=== PATIENT | female | born 1975 | race Caucasian/White ===

== ENCOUNTER 2020-11-26 09:28 | Day surgery (SDC) | payer SELFPAY ==
--- NOTE | 2020-11-25 09:05 | HP.PCM_ITS ---
History and Physical Date of Admission: 11/26/20 Pre-Op History and Physical ? HPI: The patient is a 45 year old female presenting for discussion regarding management options for heavy menses. Patient is currently on Coumadin has very heavy flow for 5 days. Patient would like management options. After discussion regarding Mirena versus endometrial ablation patient would like to proceed with Vaishnavi endometrial ablation. Endometrial biopsy being performed today. ? Pre-operative visit. She is scheduled for hysteroscopy, Vaishnavi endometrial ablation, for heavy menses, aub-date to be determined. Procedure discussed along with risks, benefits and complications. Other alternatives discussed for management. Consent form signed? Yes. ? ? PAST MEDICAL HISTORY PAST MEDICAL HISTORY Diagnosis Date ? Anxiety ? ? Kidney calculi ? ? Kidney stones 06/27/2018 ? Morbid obesity (HCC) ? ? MTHFR deficiency complicating , unspecified trimester (HCC) ? ? Psychiatric disorder ? ? Pulmonary embolism (HCC) ? ? ? PAST SURGICAL HISTORY PAST SURGICAL HISTORY Procedure Laterality Date ? APPENDECTOMY ? 07/2017 ? SECTION HX ? ? ? 2004, 2011 ? CHOLECYSTECTOMY HX ? 06/2017 ? HAND SURGERY HX Bilateral ? ? carpal tunnel ? PAST SURGICAL HISTORY OF Right 05/2017 ? KIDNEY STONES REMOVED ? PAST SURGICAL HISTORY OF ? 2011 ? tubal ligation ? PAST SURGICAL HISTORY OF ? ? ? lymph node excision neck ? SHOULDER SURGERY HX Right ? ? TONSILLECTOMY HX ? CURRENT MEDICATIONS Current Outpatient Medications Medication Sig Dispense Refill ? buPROPion XL (WELLBUTRIN XL) 150 mg 24 hr tablet Take 1 tablet by mouth once daily. 90 tablet 0 ? naltrexone (TREXAN) 50 mg tablet Take 1 tablet by mouth once daily. start with 1/4 tablet initially for 1-2 weeks. If there is no effect then increase the dose to 1/2 for another 2 weeks. This can be increased again to 3/4 and then 1 full tablet 30 tablet 2 ? warfarin (COUMADIN) 5 mg tablet Take 10mg on Monday and Monday and 7.5mg on all other days of the week 60 tablet 2 ? albuterol HFA (PROAIR HFA) 90 mcg/actuation inhaler Inhale 2 Puffs as instructed every 6 hours as needed. 1 Each 5 ? cholecalciferol, Vitamin D3, (VITAMIN D3) 1,250 mcg (50,000 unit) cap capsule Take 1 capsule by mouth one time a week. 12 capsule 3 ? sertraline (ZOLOFT) 100 mg tablet Take 1 tablet by mouth once daily. 30 tablet 11 ? busPIRone (BUSPAR) 5 mg tablet Take 1 tablet by mouth as needed. 30 tablet 5 ? Current Facility-Administered Medications Medication Dose Route Frequency Provider Last Rate Last Admin ? perflutren lipid microspheres 1.3 mL in NaCl (PF) 0.9% 10 mL injection (DEFINITY) INTRAVENOUS DIRECTED PRN Luis Mishra MD ? sodium chloride 0.9 % (flush) 10 mL (BD POSIFLUSH) 10 mL INTRAVENOUS DIRECTED PRN Luis Mishra MD ? ? ALLERGIES: Latex ? PERSONAL HISTORY: SOCIAL HISTORY Social History ? Tobacco Use ? Smoking status: Never Smoker ? Smokeless tobacco: Never Used Vaping Use ? Vaping Use: Never used Substance Use Topics ? Alcohol use: No ? ? Comment: rarely ? Drug use: No ? FAMILY HISTORY: FAMILY HISTORY FAMILY HISTORY Problem Relation Age of Onset ? Hypertension Father ? ? Breast Cancer Maternal Aunt ? ? Colon Cancer Maternal Uncle ? ? ? REVIEW OF SYMPTOMS: negative except as noted above PHYSICAL EXAMINATION: ? VITALS: Blood pressure 128/80, weight 286 lb (129.7 kg), last menstrual period 09/19/2020. ? GENERAL: The patient is well nourished, well hydrated in no acute distress. , The patient is oriented to time, place, and person. NECK: full range of motion GENITALIA: Normal external genitalia, Urethral meatus normal, Bladder nontender, normal vagina and normal vaginal tone, normal cervix and perineum WNL ? IMPRESSION: AUB, Heavy menses on coumadin ? PLAN: Hysteroscopy, Vaishnavi ablation, Possible insertion of Mirena IUD ? Pt has been counseled on risks/benefits and alternatives of surgery including but not limited to anesthesia, bleeding, infection, uterine perforation with moreno bsequent injury to pelvic structures including bowel, bladder, ureters and vessels. Pt wishes to proceed with surgery at this time. ? Pre and postoperative instructions reviewed with the patient. ? Preoperative clearance with PCP was reviewed. Patient is seeing her primary care physician next week and will ask that she perform this at that time. ? Endometrial biopsy pending today ? Covid testing will need to be performed. Patient is not vaccinated at this time. ? ? I have reviewed and updated past medical and surgical history, medications and allergies Norma Daniel, MD ?4:38 PM
[2020-11-26] VITALS (11 sets, daily range): BP systolic 131–163; BP diastolic 80–100; PULSE 69–106; RESP 16; TEMP 36.1–37; O2SAT 93–100; BMI 43.7
[2020-11-26 10:01] LABS: Internal QC Validated? YES +Cl - CLEAR BKGD; Pregnancy, Urine Negative Negative
--- NOTE | 2020-11-26 11:08 | PCM.OPRPT ---
Problems Associated Problem List Diagnoses (1) Abnormal uterine bleeding (AUB): Report of Operation Date of Procedure: 11/26/20 Pre-Operative Diagnosis: aub Post-Operative Diagnosis: same Surgery/Procedure Performed:: hysteroscopy, vaishnavi endometrial ablation Description of Surgical Findings:: Normal uterine cavity- both tubal ostial visualized. Surgeon: Norma Caraballo generating plant superintendent: ms Carrera Type of Anesthesia: MAC Specimen's removed: none Drains: none Estimated Blood Loss (mL): <5cc Fluids Replaced: 300 Description of Procedure: After informed consent was obtained patient taken to the operating room she is placed in supine position she is given anesthesia. she was prepped draped normal sterile fashion. Bladder was drained prior to the start of the procedure. At this time the weighted speculum was placed the posterior fornix of the vagina then a single-tooth tenaculum was used to grasp the anterior lip of the cervix. At this time the uterus was sounded to approximately 8 cm the endocervical canal sounded to 4cm. Next cervix was dilated in incremental fashion. Once adequate dilatation was achieved the hysteroscope was inserted using normal saline as distention medium. On hysteroscopy no abnormalities appreciated. Both tubal ostia were visualized. At this time the Vaishnavi device was opened. The Vaishnavi was set at 4cm. The device was activated. Prior to activation the field test was performed and cavity was intact. The device was then fired and activated for 120 seconds. Once the 120 seconds was completed the device was removed intact and the tenaculum was removed. Good hemostasis was appreciated. Weighted speculum was removed. Vaginal sweep was performed is negative. There were no complications. Anticipated normal postoperative course for this patient. Instrument and lap count were correct ?2. vaginal sweep negative. Grafts/Implants Used: none Procedure Start Time: 11:00 Procedure Stop Time: 11:07 Complications none Admit VTE Documentation VTE Present on Admission: Yes VTE Mechan Device Prophylaxis: SCD's VTE Pharm Prophylaxis ordered?: No Reason prophylaxis not ordered:: Medical Contraindication (patient already on- did not stop prior to procedure)
--- NOTE | 2020-11-26 11:11 | EX.PCM.DISCH ---
Discharge Instructions Procedure D&C Diet Discharge Diet: No restrictions Activity May resume sexual activity in: 1 week Dressing / Incision Call your doctor if you observe: Fever of 101 or Higher, Inability to urinate, Using more than 1 pad per hour and Uncontrolled pain Follow Up Care Please Follow Up With: Norma Caraballo MD When: 1-2 weeks post OP if you need an appointment please call [phone] Test Results: Test results from this visit will be discussed in further detail at your follow-up appointment, if applicable. Discharge Plan Admission Attending Provider: Norma Caraballo Discharge Orders/Prescriptions Prescriptions: No Action naltrexone 50 mg Tablet 50 mg PO DAILY RF: 0 sertraline 100 mg Tablet 100 mg PO DAILY RF: 0 albuterol 90 mcg/actuation Aerosol 90 mcg INHALATION PRN PRN (Reason: ASTHMA) RF: 0 bupropion HCl 300 mg Tablet Extended Release 24 Hr 300 mg PO DAILY RF: 0 Eliquis 5 mg Tablet 5 mg PO DAILY RF: 0
[2020-11-26] MEDS: HYDROcodone Bitartrate/Apap 5/325 Tablet PO (12:46)
== END 2020-11-26 13:39 | disposition home or self-care (01) ==
LOC: SDC 09:32 → AC 09:33
PROVIDERS: Anesthesiology; Referring Provider Obstetrics & Gynecology; Visit Provider Obstetrics & Gynecology
PROC: 0U5B8ZZ Destruction of Endometrium, Via Natural or Artificial Opening Endoscopic (ICD-10-PCS; CPT 58558; principal; 2020-11-26 10:45)
DX: N93.9 Abnormal uterine and vaginal bleeding, unspecified (principal); F41.9 Anxiety disorder, unspecified; Z79.01 Long term (current) use of anticoagulants; Z80.3 Family history of malignant neoplasm of breast; Z82.49 Family history of ischemic heart disease and other diseases of the circulatory system; Z86.711 Personal history of pulmonary embolism; Z90.49 Acquired absence of other specified parts of digestive tract; Z79.899 Other long term (current) drug therapy
CPT/HCPCS: 00952; 58563; 81025; 87426; C9803; J7120; J2405

== ENCOUNTER 2023-11-02 05:29 | Day surgery (SDC) | payer SELFPAY ==
--- NOTE | 2023-10-31 11:27 | HP.PCM_ITS ---
History and Physical Date of Admission: 11/02/23 HPI: The patient is a 48 year old female presenting for pre-operative visit. She is scheduled for TLH with cystoscopy, for menorrhagia, failed endometrial ablation on 11/02/23. Procedure discussed along with risks, benefits and complications. Other alternatives discussed for management. Consent form signed? Yes. PAST MEDICAL HISTORY PAST MEDICAL HISTORY No date: Anxiety No date: Kidney calculi 06/27/2018: Kidney stones No date: Morbid obesity (HCC) No date: MTHFR deficiency complicating , unspecified trimester (HCC) No date: PONV (postoperative nausea and vomiting) No date: Psychiatric disorder No date: Pulmonary embolism (HCC) PAST SURGICAL HISTORY PAST SURGICAL HISTORY 07/2017: APPENDECTOMY No date: SECTION HX Comment: 2004, 06/2017: CHOLECYSTECTOMY HX 06/09/2023: [facility] Comment: Left extracorporeal shock wave lithotripsy No date: HAND SURGERY HX; Bilateral Comment: carpal tunnel 04/02/2021: HIP SURGERY HX; Right Comment: total hip arthroplasty with rKish Hinkle([facility]) 05/2017: PAST SURGICAL HISTORY OF; Right Comment: KIDNEY STONES REMOVED 2011: PAST SURGICAL HISTORY OF Comment: tubal ligation No date: PAST SURGICAL HISTORY OF Comment: lymph node excision neck 11/26/2020: S DEV VAISHNAVI ENDOMETRIAL ABLATION Comment: Hysterscopy Vaishnavi Endometrial Ablation at [facility]-Dr. Daniel No date: SHOULDER SURGERY HX; Right No date: TONSILLECTOMY HX CURRENT MEDICATIONS Current Outpatient Medications Medication Sig Dispense Refill ? semaglutide (OZEMPIC) 0.25 mg or 0.5 mg(2 mg/1.5 mL) pen Inject 0.25 mg subcutaneously one time a week. Takes on Wednesdays ? apixaban (ELIQUIS) 5 mg tab(s) Take by mouth twice daily. No current facility-administered medications for this visit. ALLERGIES: Ciprofloxacin and Latex PERSONAL HISTORY: SOCIAL HISTORY Social History Tobacco Use ? Smoking status: Never ? Smokeless tobacco: Never Vaping Use ? Vaping Use: Never used Substance Use Topics ? Alcohol use: No Comment: rarely ? Drug use: No FAMILY HISTORY: FAMILY HISTORY FAMILY HISTORY Problem Relation Age of Onset ? Hypertension Father ? Breast Cancer Maternal Aunt ? Colon Cancer Maternal Uncle REVIEW OF SYMPTOMS: GENERAL: denies fevers or chills ENDOCRINOLOGY: has not been on steroids Cardiology : denies palpitations or chest pain Respiratory: denies SOB or cough Hematology: denies history of prolonged bleeding or easy bruising or VTE Allergy: Denies history of personal or family history of allergy to anesthesia PHYSICAL EXAMINATION: VITALS: Last menstrual period 09/30/2023. GENERAL: The patient is well nourished, well hydrated in no acute distress. , The patient is oriented to time, place, and person. NECK: Supple. No lynphadenopathy, normal thyroid, no thyromegaly. LUNGS: Clear to auscultation bilaterally. no wheezes, rhonchi or rales HEART: Regular rate and rhythm, Normal heart sounds, and No murmurs or gallops PELVIC US : Abnormal uterine bleeding Impression The contour of the uterus and the endometrial cavity were evaluated with 3-D imaging. Findings are suggestive of arcuate uterus. The uterus is axial and measures 86 mm x 40 mm x 56 mm. The myometrium is heterogeneous but no obvious fibroids are observed. This finding is suggestive of adenomyosis. The endometrial thickness is 4.8 mm. There is a left lateral anterior wall echogenic lesion that is suspicious for a polyp that measures 10 mm x 7 mm x 7 mm. The right ovary measures 27 mm x 14 mm x 18 mm. The left ovary measures 22 mm x 19 mm x 16 mm. There is no free fluid visualized. Technique: Three dimensional imaging was created on a dedicated stand-alone 3D workstation with images created and archived, and supervised and reviewed by the interpreting physician utilizing images from a US Scan performed on 10/10/23. Recommendations Consider SIS for further evaluation of endometrial cavity if clinically indicated. Ultrasound findings suggestive for adenomyosis. Clinical correlation is recommended. History Medical History Surgery: Tubal ligation Surgery: uterine ablation Menstrual History LMP on 09/30/2023. Contraception: none Method Transabdominal, transvaginal, 3D ultrasound examination, Color Doppler examination. View: Adequate visualization Uterus Uterus: Visualized Uterus position: axial Description of uterine malformations: arcuate Myometrium: heterogeneous Endometrium: possible polyp in the left portion Cervix details: cystic lesions identified suggesting superficial Nabothian cysts Uterus length 86 mm Uterus width 56 mm Uterus height 40 mm Uterus Vol 99.7 cm? Endometrial thickness single layer 4.5 mm Endom. th. single layer 6.5 mm Side: right Side: left Endometrial thickness, total 4.8 mm Fibroids: No fibroids identified Polyps: Polyps identified Uterine polyp D1 10 mm Uterine polyp D2 7 mm Uterine polyp D3 7 mm Uterine polyp mean 8.0 mm Doppler: vascular flow not visualized Uterine polyp findings: Left lateral anterior wall Right Ovary Rt ovary: Visualized Rt ovary morphology: premenopausal normal follicular Rt ovary D1 27 mm Rt ovary D2 14 mm Rt ovary D3 18 mm Rt ovary Vol 3.6 cm? Rt ovarian cyst(s): No cysts identified Left Ovary Lt ovary: Visualized Lt ovary morphology: premenopausal normal follicular Lt ovary D1 22 mm Lt ovary D2 19 mm Lt ovary D3 16 mm Lt ovary Vol 3.4 cm? Lt ovarian cyst(s): No cysts identified Cul de Sac Visualized. no free fluid visualized IMPRESSION: menorrhagia, h/o PE on lifelong anticoagulation, failed endometrial ablation, adenomyosis, arcuate uterus PLAN: The risks/benefits/alternatives and personal involved for the planned TLH with cystoscopy were reviewed with the patient. Her questions were answered to her satisfaction and she desires to proceed. Consent was signed. I reviewed with her postop instructions and expectations. Will bridge with lovenox for 3 days preop and start Eliquis POD#1 if no evidence of postop bleeding I have reviewed and updated past medical and surgical history, medications and allergies Assessment & Plan Assessment/Plan (1) Abnormal uterine bleeding (AUB): (2) Adenomyosis: (3) Arcuate uterus: (4) Endometrial polyp: (5) Anticoagulant long-term use:
[2023-11-02] VITALS (10 sets, daily range): BP systolic 108–158; BP diastolic 59–93; PULSE 72–101; RESP 16; TEMP 36.2–37.2; O2SAT 97–100; BMI 36.8
[2023-11-02 05:58] LABS: Internal QC Validated? YES +Cl - CLEAR BKGD; Pregnancy, Urine Negative Negative; Record Kit Lot#,Urine Preg 772476
--- NOTE | 2023-11-02 06:52 | PCM.PRE.AN2 ---
ASA Classification* ASA Classification ASA Classification: 2 Assessment & Plan Anesthesia* Anesthesia Assessment Anesthesia Assessment: Discussed sedation and/or anesthesia options, risks, benefits, and alternatives with patient/parents/legal guardian/POA. Questions invited. The patient/parents/legal guardian/POA seems to understand and agrees to proceed with anesthesia plan. Reviewed the physical assessment, medical history, allergy history and patient home medications list prior to surgery/procedure/anesthetic and documented any changes. Performed airway and anesthesia risk assessments. Anesthesia Type Anesthesia Type: General (see written pre-anesthesia record for full assessment) Anesthesia Focused Assessment* Temperature: 97.6 F Pulse Rate: 89 Blood Pressure: 135/84 Respiratory Rate: 16 Pulse Ox: 99 Airway Assessment Mouth opens: >3 cm Mallampati Score: II Focused Labs Anesthesia Preop lab: CBC CHEMISTRY Magnesium Pending 11/02/23 06:20 COAG Urine Test Negative Negative 11/02/23 05:50 Pre-Assessment Diagnosis/Proposed Procedure Planned Operative Procedure(s): HYSTERECTOMY TLH CYSTO Anesthesia History Anesthesia History - manager consumer: Anesthesia History - manager consumer Hx Hospitalization No 10/24/23 13:45 Any Problems With Anesthesia Yes: N,V 10/24/23 13:45 Cholinesterase deficiency No 10/24/23 13:45 You/Your Family Experience No 10/24/23 13:45 fever (hyperthermia) with Relationship Recent Exposure to Contagious No 11/02/23 06:07 Disease Does patient have nerve No 10/24/23 13:45 stimulator Patient instructed to have device shut off --Does patient have Pacemaker No 11/02/23 06:07 or ICD? When Was Last Pacemaker Check QUESTION #4 FULL TEXT: You/Your Family Experience fever (hyperthermia) with Anesthesia Last Oral Intake Last Oral intake: Last Oral Intake NPO since 03:30 11/02/23 06:07 Meds taken in AM with sips of Yes 11/02/23 06:07 water? Meds patient instructed to take am of surgery PONV PONV - manager consumer: PONV - manager consumer Female Yes 10/24/23 13:45 HX of Motion Sickness No 10/24/23 13:45 HX of N/V After Surgery Yes 10/24/23 13:45 Non-Smoker Yes 10/24/23 13:45 Duration of Surgery greater Yes 10/24/23 13:45 than 60 minutes Number of Risk Factors 4 10/24/23 13:45 PONV Score Severe Risk 10/24/23 13:45 Height & Weight Height & Weight: Anesthesia: Height & Weight Height 5 ft 7 in 11/02/23 06:07 Weight: 106.5 kg 11/02/23 06:07 Body Mass Index (BMI) 36.8 11/02/23 06:07 Respiratory Assessment Respiratory Assessment - manager consumer: Respiratory Tract Infection Hx - manager consumer Hx Respiratory Tract Infection No 10/24/23 13:45 STOP Sleep Apnea STOP Sleep Apnea - manager consumer: STOP Sleep Apnea - manager consumer Hx Hypertension Yes: ONLY DURING 10/24/23 13:45 Hx Sleep Apnea No 10/24/23 13:45 CPAP BIPAP Do you snore loudly (louder No 10/24/23 13:45 than talking or can be heard Do you often feel tired/ No 10/24/23 13:45 fatigued/ sleepy during daytime? Has anyone observed you stop No 10/24/23 13:45 breathing during sleep? STOP Results Negative 10/24/23 13:45 QUESTION #5 FULL TEXT : Do you snore loudly (louder than talking or can be heard through closed doors)? Tobacco Use History Tobacco Use History - manager consumer: Tobacco Use History - manager consumer Tobacco Use Smoking Status Never smoker 10/24/23 13:45 Hx Tobacco Use No 10/24/23 13:45 Years Smoking Packs Smoked per Day Smoking Cessation Date was within the last 15 years Hx Smoking Cessation Date Hx Smoking Cessation Counseling Hematologic Medial History Hematologic Hx - manager consumer: Hematologic Medical Hx - director regulatory compliance Hx of Blood Transfusion No 10/24/23 13:45 Hx of Transfusion in last 3 No 10/24/23 13:45 Months Date of Last Transfusion (if within last 3 months) Ever experience any problems No 10/24/23 13:45 with transfusion(s)? Specify any problems Hx of Preganancy in last 3 No 10/24/23 13:45 Months Nurse Filling Out Transfusion DSCHRIBER 10/24/23 13:45 & Questions: Date: 10/24/23 10/24/23 13:45 Time: 13:47 10/24/23 13:45 Patient unable to answer at this time (ie. confused, unrespo /Reproduction History /Reproductive History - manager consumer: /Reproductive Hx- manager consumer Hx Now No 10/24/23 13:45 Gestational Age (in weeks): EDC: Hx Hx Para Hx Section SAB No 10/24/23 13:45 Active Medications Active Medications: Current Medications Generic Name Dose Route Start Last Admin Trade Name Freq PRN Reason Stop Dose Admin Acetaminophen 1,000 mg 11/02/23 07:30 11/02/23 06:35 Acetaminophen 500 Mg Tablet PO 11/02/23 07:31 1,000 mg PREOP ONE Administration Celecoxib 400 mg 11/02/23 07:30 11/02/23 06:34 Celecoxib 200 Mg Capsule PO 11/02/23 07:31 400 mg X1 ONE Administration Dexamethasone Sodium Phosphate 8 mg 11/02/23 07:30 Dexamethasone 4 Mg/Ml Vial IV 11/02/23 07:31 X1 ONE Gabapentin 600 mg 11/02/23 07:30 11/02/23 06:34 Gabapentin 600 Mg Tablet PO 11/02/23 07:31 600 mg PREOP ONE Administration Lactated Ringer's 1,000 mls @ 40 mls/hr 11/02/23 07:30 IV .Q25H GISSEL Cefazolin Sodium 2 gm/ Sodium 110 mls @ 150 mls/hr 11/02/23 07:30 Chloride IV 11/02/23 08:13 PREOP ONE Lactated Ringer's 1,000 mls @ 40 mls/hr 11/02/23 08:30 IV .Q25H GISSEL Lactated Ringer's 1,000 mls @ 15 mls/hr 11/02/23 06:00 11/02/23 06:34 IV 15 mls/hr .Q48H GISSEL Administration Insulin Human Lispro 0 unit 11/02/23 07:30 Insulin Lispro 100 Unit/Ml Insuln.Pen SC 11/02/23 13:30 Q4H PRN PRN BG >/= 180, SEE PROTOCOL Protocol Ondansetron HCl 4 mg 11/02/23 08:00 Ondansetron 4 Mg/2 Ml Vial IV 11/02/23 08:01 X1 ONE Phenazopyridine HCl 190 mg 11/02/23 07:30 11/02/23 06:34 Phenazopyridine 95 Mg Tablet PO 11/02/23 07:31 190 mg X1 ONE Administration Scopolamine HBr 1 patch 11/02/23 07:30 11/02/23 06:35 Scopolamine 1mg/72hr Patch TD 11/02/23 07:31 1 patch X1 ONE Administration PFSH Medical History Alcohol use Arthritis Low iron Syncope History of pain when walking Wears glasses Depression Blood disorder Pulmonary embolism DVT (deep venous thrombosis) Migraine headache Non-smoker Asthma Hypertension Home Medications ?Medication ?Instructions ?Recorded ?Last Taken ?Type albuterol 90 mcg/actuation aerosol 90 mcg inhalation PRN PRN ASTHMA 11/19/20 Unknown History inhaler apixaban 5 mg tablet (Eliquis) 5 mg PO BID 11/19/20 10/29/23 History sertraline 100 mg tablet 100 mg PO DAILY 11/19/20 Unknown History semaglutide 0.25 mg or 0.5 mg (2 0.25 mg subcut QWEEK 10/24/23 10/18/23 History mg/1.5 mL) subcutaneous pen injector (Ozempic) enoxaparin 100 mg/mL subcutaneous 100 mg subcut Q12H 11/02/23 11/01/23 History syringe (Lovenox) Allergy/AdvReac Type Severity Reaction Status Date / Time ciprofloxacin (From Cipro) Allergy Rash Verified 11/02/23 06:00 latex Allergy Hives Verified 11/02/23 06:00 Surgical History Hx of total hip arthroplasty Hx of lithotripsy Hx of shoulder surgery History of hysteroscopy Hx of dilation and curettage Hx of shoulder surgery Hx of tonsillectomy Hx of breast biopsy Hx of carpal tunnel repair Hx of nephrostomy Hx of lymph node excision Hx laparoscopic cholecystectomy Hx of section Social History Smoking Status: Never smoker Review of Systems (Anesthesia) ROS Narrative System reviewed and no additional complaints, except as documented.
[2023-11-02 06:57] LABS: Magnesium 2.1 mg/dL (1.6-2.6)
--- NOTE | 2023-11-02 07:30 | HYST_PTH ---
PATIENT: JOE LOJA LOC: [facility] [place] U#:[id number] AGE/SX: 48/F ROOM: RE11/02/[address]: Dr. Kaykay Clemons MD : [id number] BED: DIS: 11/02/2023 SPEC #: [id number] RECD: 11/02/23 10:55 STATUS: KAYLA REKo #: [id number] AIDAN: 11/02/23 07:[address]: Kaykay Clemons DEPT: SURGICAL PATHOLOGY RECD BY: Nai Dueñas ENTERED: 11/02/23 11:30 SP TYPE: HYSTERECT OTHR DR: Dr. Bandar Menon MD Tissues: Uterus, NOS Procedures: Surgery Specimen Level V HEADER OPERATION: Hysterectomy, TLH, cystoscopy PRE-OP DIAGNOSIS: Abnormal uterine bleeding, adenomyosis, arcuate uterus, endometrial polyp, anticoagulant long-term use TISSUE SUBMITTED: Cervix, uterus, bilateral fallopian tubes MICROSCOPIC DIAGNOSIS Uterus, hysterectomy: Cervix - Nabothian cysts and mild chronic inflammation Endometrium - Proliferative endometrium with focal simple cystic hyperplasia without atypia Myometrium - No pathologic change Right and left fallopian tubes- Complete cross sections with being paratubal cysts. AM: 11/03/2023 COMMENT Case has been reviewed in consultation with Dr. Hernandez who concurs with the above diagnosis. IDC:[email or web address] MICROSCOPIC DESCRIPTION Slides are reviewed. GROSS DESCRIPTION Received in fixative is one container labeled with the patient's name and designated uterus, cervix, partial bilateral fallopian tubes. The specimen consists of a hysterectomy specimen consisting of previously opened uterus with cervix and detached bilateral fallopian tubes and a detached cyst. The uterus with cervix weighs 88.0 gm and measures 9.0 x 5.5 x 4.0 cm. The serosal surface is price glistening. The ectocervical mucosa is unremarkable. The external os is oval in contour. The endocervical canal measures 3.0 cm in length and the endocervical mucosa is price glistening and unremarkable. The endometrial cavity is narrow and measures 4.0 cm in length and 0.6 cm in width. The endometrium is price glistening without any mass lesion and measures <0.1 cm in thickness. Section of the uterine show illdefined nodule close to fundus. Fallopian tubes are not identified as right or left. One of the fallopian tubes measures 2.5cm in length and 0.9cm in diameter. Fimbrial end is identified. Second fallopian tube measures 4.5cm in length and 0.5cm in diameter. Fimbrial end is identified. Section of both fallopian tubes reveal unremarkable cut surfaces. Also present in the container is a detached cyst measuring 0.8 x 0.5 x 0.5cm. Cyst is filled with clear fluid. Bandage Maker sections are submitted in ten cassettes as follows: 1 - anterior cervix, 2 - posterior cervix, 3 & 4 - anterior uterine wall, 5 & 6 - posterior uterine wall, 7- uterine wall with illdefined nodule, 8- one fallopian tube, 9- second fallopian tube, 10- detached cyst, entirely submitted. SJ: 11/02/2023 TC:5 CPT: 02192
--- NOTE | 2023-11-02 07:50 | DCINST_ITS ---
Discharge Instructions Activity May shower in (days): 1 May resume sexual activity in: 6-8 weeks and - (Nothing in your vagina for 6 weeks. No vaginal or anal intercourse for 6-8 weeks) Dressing / Incision Call your doctor if your incision/area has: Continuous Slow Oozing, Sudden Increased Bleeding, Increased Redness and Foul Smelling Discharge Call your doctor if you observe: Fever of 101 or Higher and Using more than 1 pad per hour Cleanse incision/area with: Soap & Water and - (Your incisions have skin glue, it can get wet, leave the glue on until it falls off. ) Follow Up Care Please Follow Up With: Kaykay Clemons MD When: With my office in 1 and 6 weeks. Call [phone] or send a [employer] message for non urgent questions Test Results: Test results from this visit will be discussed in further detail at your follow- up appointment, if applicable. Discharge Plan Admission Primary Reason for Your Visit: Total laparoscopic hysterectomy Attending Provider: Kaykay Clemons Primary Care Provider: Bandar Menon Consulting Providers: OLIVER SWAIN Instructions Print Language: Georgian Discharge Orders/Prescriptions Prescriptions: New oxycodone 5 mg tablet 5 mg PO Q8H PRN PRN (Reason: severe pain) 7 Days Qty: 20 0RF Continued albuterol 90 mcg/actuation Aerosol 90 mcg INHALATION PRN PRN (Reason: ASTHMA) Eliquis 5 mg Tablet 5 mg PO BID Discontinued enoxaparin [Lovenox] 100 mg/mL syringe 100 mg subcut Q12H No Action sertraline 100 mg Tablet 100 mg PO DAILY Ozempic 0.25 mg or 0.5 mg(2 mg/1.5 mL) pen injector 0.25 mg subcut QWEEK Rx Instructions: for 4 weeks Referrals / Follow Up: OLIVER SWAIN [Other] Disposition Disposition (needs filled in before D/C Order can be placed): Home, Self Care
--- NOTE | 2023-11-02 07:51 | OP.PCM_ITS ---
Problems Associated Problem List Diagnoses (1) Endometrial polyp: (2) Arcuate uterus: (3) Adenomyosis: (4) Abnormal uterine bleeding (AUB): Report of Operation Date of Procedure: 11/02/23 Pre-Operative Diagnosis: adenomyosis, abnormal uterine bleeding, failed endometrial ablation, arcuate uterus, endometrial polyp Post-Operative Diagnosis: same Surgery/Procedure Performed:: TLH with cystoscopy Description of Surgical Findings:: boggy uterue, normal cervix and ovaries, remnant fallopian tubes- fimbria from previous tubal Surgeon: Kaykay Clemons track coach: Norma Caraballo Type of Anesthesia: General Anesthesiologist: Elise Mendoza Special Medications: none Specimen's removed: uterus, cervix, tubal remnants Drains: same Estimated Blood Loss (mL): 100 Fluids Replaced: 1400 Description of Procedure: The patient was taken to the operating room where she was prepped and draped in the dorsal lithotomy position. Her arms were tucked to the side and padded and her legs were placed in the yellowfin stirrups. Care was taken to ensure that she was placed in a neurologically safe and neutral position. A weighted speculum was placed in the vagina and the anterior lip of the cervix was grasped with a single-tooth tenaculum. The cervix sounded to 9 centimeters. 2-0 Vicryl sutures were secured to the cervix at 3 and 9:00. The 3 cm uterine printed circuit boards solder leveler was placed into the cervix and the balloon inflated. The stay sutures were placed through the cup and secured down to the cervix. Once the uterine d elineator was secured to the cervix the Worthington catheter was placed to straight drain. Attention was turned to the abdominal portion of the case. Before skin incisions were made they were infiltrated with 0.5% Marcaine solution for local anesthetic. A 5 mm intraumbilical incision was made and while tenting the anterior abdominal wall up with towel clamps a 5 mm blade less trocar and sleeve were advanced directly into the peritoneal cavity using the Visiport. Peritoneal placement was confirmed with the laparoscope the pneumoperitoneum was created, and the underlying abdominal contents were intact. The patient was placed in Trendelenburg and the above findings were noted. Right and left lateral 5 mm trochars were placed under direct visualization without difficulty. At this point it was noted that there was an incidental uterine perforation that did not cause any complications. The uterine printed circuit boards solder leveler was perforating the uterus. It was then pulled back so the balloon was inside the uterus. The antimesenteric portion of the tube remaining fallopian tube was clamped sealed and transected serially on both sides with the LigaSure device. The round ligaments were clamped sealed and transected and a window was made in the peritoneum. The utero-ovarian ligaments were then clamped sealed and transected with the LigaSure device and the pedicles were hemostatic The bladder flap was dissected down with the LigaSure device and blunt dissection and the uterine arteries were then skeletonized. The uterine arteries were clamped sealed and transected on both sides with the LigaSure device. There was some backbleeding from the uterine arteries and the uterus. Then along the cardinal ligament uterine arteries adjacent to the cervix were clamped sealed and transected with the LigaSure device to move them away from the vaginal cuff angle. At this point the pedicles were all examined and found to be hemostatic. The bladder flap was rechecked and found to be adequately down. The monopolar tip of the LigaSure device was then used to enter the anterior vagina. The vaginal manipulator cup was noted in the vaginal colpotomy incision was made circumferentially around the cup. When the 3 and 9:00 positions of the cervicovaginal junction were reached these were clamped sealed and transected with the LigaSure device to secure any small remaining vessels. There was some oozing from the vaginal cuff At this point the pedicles were hemostatic from above and attention was turned to the vaginal portion of the case again. The uterus was brought intact out through the vaginal colpotomy incision along with the tubes There is some bleeding from the left vaginal cuff angle and this was grasped with an Allis clamp. Vaginal angle sutures were placed on both sides with 0 Vicryl sutures and care was taken to ensure that the uterosacral ligament was secured into this stitch. The remainder the vagina was then closed horizontally with interrupted 0 Vicryl sutures. The cuff was hemostatic vaginally. The Worthington catheter was removed and a cystoscopy was performed. The bladder appeared normal and was intact. Both ureteral orifices were noted and both ureteral jets were seen. The cystoscope was removed and the Worthington catheter was placed back to straight drain. A sponge stick was placed in the vagina to help place traction against the vaginal cuff and the pneumoperitoneum was re-created. The suction knuckle bender was used to remove any blood and clots from the peritoneal cavity. There was some oozing from the anterior peritoneal edge of the bladder flap and also from the vaginal cuff in the midline. Bovie cauterization was used along with Heema blast and some pressure and excellent hemostasis was noted. The rest of Heema blast was placed across the vaginal cuff. The pedicles were reexamined and found to be hemostatic. The vaginal cuff was hemostatic. No active bleeding was noted through the Heema blast. The right and left lateral ports were taken out and the sites were hemostatic. The pneumoperitoneum was released and even under low pressure there was no bleeding of any of the pedicles are vaginal cuff. The umbilical port was removed. The umbilical skin incisions were closed with Monocryl suture and skin glue by Dr. Daniel. The vaginal instruments were removed by me and a vaginal sweep was completed by me. The surgery was performed by me with assistance other than the portions dictated as above. There were no qualified residents available for this procedure. All sponge lap and needle counts were correct and the patient was transferred to the recovery room in stable condition. Dr. Daniel provided tissue manipulation, uterine manipulation, visualization and generalized assistance with the hysterectomy portion of the case. Grafts/Implants Used: none Procedure Start Time: 08:01 Procedure Stop Time: 09:49 Complications none Admit VTE Documentation VTE Present on Admission: No VTE Mechan Device Prophylaxis: SCD's VTE Pharm Prophylaxis ordered?: Yes
[2023-11-02 08:02] LABS: Bedside Glucose 97 mg/dL (74-106)
--- NOTE | 2023-11-02 10:07 | PCM.POST.ANE ---
Anesthesia: Postop Eval I Current Vital Signs Temperature: 97.6 F Pulse Rate: 96 Blood Pressure: 121/67 Respiratory Rate: 16 Pulse Ox: 97 Oxygen Delivery Method: Nasal Cannula Oxygen Flow Rate (L/min): 4 (Per ERAS protocol) Assessment Airway patent: Yes Spontaneous unlabored respirations: Yes Mental status: Awake and Calm nausea: No Vomiting: No Anesthesia Complication: No Fluid Hydration Crystalloid volume administer (ml): 1,500 Total IV fluid infused: 1,500 Progress Note Anesthesia document: Postop Eval 1 completed: Yes
--- NOTE | 2023-11-02 10:51 | POSTOPAN2_ITS ---
Anesthesia Postop Eval I Sum Postop Eval Completion status Anesthesia document: Postop Eval 1 completed: Yes Anesthesia Postop Eval I Summary Anesthesia Postop Eval I Summary: Anesthesia Postop Eval I: Assessment Summary Airway patent Yes 11/02/23 10:17 FINANCIAL AID DIRECTOR.[email or web address] Spontaneous unlabored Yes 11/02/23 10:17 FINANCIAL AID DIRECTOR.[email or web address] respirations Mental status Awake,Calm 11/02/23 10:17 FINANCIAL AID DIRECTOR.[email or web address] nausea No 11/02/23 10:17 FINANCIAL AID DIRECTOR.[email or web address] Vomiting No 11/02/23 10:17 FINANCIAL AID DIRECTOR.[email or web address] Anesthesia Postop Eval I: Fluid Summary Crystalloid volume administer 1,500 11/02/23 10:17 FINANCIAL AID DIRECTOR.GDOTT (ml) Colloids volume administered ( ml) Blood Product volume administered (ml) Total IV fluid infused 1,500 11/02/23 10:17 FINANCIAL AID DIRECTOR.GDOTT Anesthesia Postop Eval I: Summary Notes Anesthesia Complication No 11/02/23 10:17 FINANCIAL AID DIRECTOR.GDOTT Anesthesia Complication Comment: Post-operative progress note Anesthesia: Postop Eval II Evaluation Mental status: Awake Pain Level: 0 nausea: No Vomiting: No
--- NOTE | 2023-11-02 10:51 | PCM.POSTANE2 ---
Anesthesia Postop Eval I Sum Postop Eval Completion status Anesthesia document: Postop Eval 1 completed: Yes Anesthesia Postop Eval I Summary Anesthesia Postop Eval I Summary: Anesthesia Postop Eval I: Assessment Summary Airway patent Yes 11/02/23 10:17 [email or web address] Spontaneous unlabored Yes 11/02/23 10:17 [email or web address] respirations Mental status Awake,Calm 11/02/23 10:17 [email or web address] nausea No 11/02/23 10:17 [email or web address].[email or web address] Vomiting No 11/02/23 10:17 [email or web address].[email or web address] Anesthesia Postop Eval I: Fluid Summary Crystalloid volume administer 1,500 11/02/23 10:17 [email or web address].[email or web address] (ml) Colloids volume administered ( ml) Blood Product volume administered (ml) Total IV fluid infused 1,500 11/02/23 10:17 [email or web address].[email or web address] Anesthesia Postop Eval I: Summary Notes Anesthesia Complication No 11/02/23 10:17 CORRUGATOR.GDOTT Anesthesia Complication Comment: Post-operative progress note Anesthesia: Postop Eval II Evaluation Mental status: Awake Pain Level: 0 nausea: No Vomiting: No
== END 2023-11-02 15:51 | disposition home or self-care (01) ==
LOC: SDC 05:30 → AC 05:30
PROVIDERS: Anesthesiology; PCP Family Medicine; Referring Provider Obstetrics & Gynecology; Visit Provider Obstetrics & Gynecology
PROC: 0UT94ZZ Resection of Uterus, Percutaneous Endoscopic Approach (ICD-10-PCS; CPT 58571; principal; 2023-11-02 07:10)
DX: N80.03 Adenomyosis of the uterus (principal); N88.8 Other specified noninflammatory disorders of cervix uteri; N83.8 Other noninflammatory disorders of ovary, fallopian tube and broad ligament; N93.9 Abnormal uterine and vaginal bleeding, unspecified; Q51.810 Arcuate uterus; F32.A Depression, unspecified; Z79.01 Long term (current) use of anticoagulants; Z79.899 Other long term (current) drug therapy; Z86.711 Personal history of pulmonary embolism; Z86.718 Personal history of other venous thrombosis and embolism
CPT/HCPCS: 58571; 00840; 81025; 82962; 83735; 86850; 86900; 86901; 88307; J7120; J2405; J3475